=== PATIENT | male | born 1960 | race Caucasian/White ===

== ENCOUNTER → 2022-10-02 13:10 | Outpatient (BNVA) | payer MEDICAID, SELFPAY | PROVIDERS: PCP Nurse Practitioner Family; Visit Provider Nurse Practitioner Family | DX: Z86.19 Personal history of other infectious and parasitic diseases (principal); E78.5 Hyperlipidemia, unspecified; G89.29 Other chronic pain; N18.9 Chronic kidney disease, unspecified; Z12.5 Encounter for screening for malignant neoplasm of prostate; Z85.828 Personal history of other malignant neoplasm of skin | CPT/HCPCS: 80053; 80061; 82043; 82306; G0103 ==

== ENCOUNTER 2022-11-08 12:48 | Outpatient (CLI) | payer MEDICAID, SELFPAY ==
--- NOTE | 2022-11-08 12:45 | CT_ITS ---
WS: [id number] LDCT LUNG CANCER SCREENING HISTORY: screening TECHNIQUE: Axial imaging performed from the apices to 1 cm below the costophrenic angles. Coronal and sagittal reformats are submitted with axial MIP series. All CT scans at [facility] use at least one of these dose optimization techniques: automated exposure control; mA and/or kV adjustment per patient size (includes targeted exams where dose is matched to clinical indication); or iterativ e reconstruction. DLP: 54.01 mGy.cm DIvol: Mean CTDIvol: 0.90 (mGy) COMPARISON: None available. Diagnostic quality: Satisfactory Lungs: Mildly hyperexpanded lungs. No mass or nodule. No endobronchial lesions. Heart: Normal size heart with no pericardial effusion.. Mild coronary artery calcification. Other findings: Small mediastinal and hilar lymph nodes. Mild atherosclerosis aorta. CT/CT lung screening [id number] IMPRESSION: LUNG-RADS: 1-Negative FOLLOW UP: 12 Month: Continue annual screening with LDCT OTHER FINDINGS (S MODIFIER): None.
== END 2022-11-08 12:49 | disposition home or self-care (01) ==
LOC: RAD 12:50
PROVIDERS: PCP Nurse Practitioner Family; Visit Provider Nurse Practitioner Family
DX: Z12.2 Encounter for screening for malignant neoplasm of respiratory organs (principal); F17.200 Nicotine dependence, unspecified, uncomplicated
CPT/HCPCS: 71271; 80053; 80061; 82043; 82306; G0103

== ENCOUNTER → 2023-01-03 11:55 | Outpatient (BNVA) | payer MEDICARE, MEDICAID, SELFPAY | PROVIDERS: PCP Nurse Practitioner Family; Visit Provider Nurse Practitioner Family | DX: E78.5 Hyperlipidemia, unspecified (principal); G89.29 Other chronic pain; M54.9 Dorsalgia, unspecified; E55.9 Vitamin D deficiency, unspecified; N18.9 Chronic kidney disease, unspecified; M54.10 Radiculopathy, site unspecified; G62.9 Polyneuropathy, unspecified; N32.81 Overactive bladder; K21.9 Gastro-esophageal reflux disease without esophagitis; N40.0 Benign prostatic hyperplasia without lower urinary tract symptoms; G47.00 Insomnia, unspecified; Z12.2 Encounter for screening for malignant neoplasm of respiratory organs; Z90.5 Acquired absence of kidney | CPT/HCPCS: 80053; 80061 ==

== ENCOUNTER → 2023-03-29 12:03 | Outpatient (BNVA) | payer MEDICARE, MEDICAID, SELFPAY | PROVIDERS: PCP Nurse Practitioner Family; Visit Provider Nurse Practitioner Family | DX: M54.10 Radiculopathy, site unspecified (principal); G89.29 Other chronic pain; F41.9 Anxiety disorder, unspecified; J06.9 Acute upper respiratory infection, unspecified; R53.1 Weakness | CPT/HCPCS: 87486; 87581; 87633 ==

== ENCOUNTER → 2023-05-01 12:02 | Outpatient (BNVA) | payer MEDICARE, MEDICAID, SELFPAY | PROVIDERS: PCP Nurse Practitioner Family; Visit Provider Nurse Practitioner Family | DX: M54.10 Radiculopathy, site unspecified (principal); G89.29 Other chronic pain; J32.9 Chronic sinusitis, unspecified; E78.2 Mixed hyperlipidemia; K21.9 Gastro-esophageal reflux disease without esophagitis; G62.9 Polyneuropathy, unspecified; E55.9 Vitamin D deficiency, unspecified; G47.00 Insomnia, unspecified; Z13.6 Encounter for screening for cardiovascular disorders; N18.9 Chronic kidney disease, unspecified; Z79.899 Other long term (current) drug therapy | CPT/HCPCS: 80053; 80061; 82607; 82746; 84443 ==

== ENCOUNTER 2023-07-03 15:00 | Outpatient (CLI) | payer MEDICARE, MEDICAID, SELFPAY ==
--- NOTE | 2023-07-03 15:15 | MR_ITS ---
WS: [id number] MRI LUMBAR SPINE NONCONTRAST TECHNIQUE: Sagittal T1, T2 and STIR imaging. Axial T1 and T2 imaging. CLINICAL INFORMATION: LBP with sciatica COMPARISON: None. FINDINGS: Counting performed from the craniocervical junction. L5 is partially sacralized with a rudimentary di sc base. Recommend plain film correlation prior to surgical intervention. T12-L1: Shallow central disc protrusion. Mild central canal stenosis. Narrowing of the subarticular r ecess bilaterally. Mild facet arthropathy. Foramen are patent. L1-L2: Mild disc bulging with mild central canal stenosis. Narrowing of the subarticular recess bilat erally. Mild facet arthropathy. L2-L3: Shallow central protrusion. Mild central canal stenosis. Narrowing of the LEFT subarticular re cess. Moderate facet arthropathy. Foramen are patent. L3-L4: Mild disc bulging with slight narrowing the subarticular recess bilaterally. Moderate facet ar thropathy. Foramen are patent. L4-L5: Mild disc bulge with endplate ridging. Slight impingement traversing L5 nerve roots bilaterall y. Moderate facet arthropathy. Mild RIGHT foraminal narrowing. L5-S1: L5 is partially sacralized with a rudimentary disc space. Spinal canal and foramen appear barbour nt. Visualized pelvic bony structures: Normal. Paravertebral soft tissues: Normal. Small central protrusions in the cervical spine with mild central canal stenosis C3-C4 C5-C6 and C6-C 7. This be further evaluated with cervical spine MRI. IMPRESSION: 1. Counting performed from the craniocervical junction. L5 is partially sacralized with a rudimenta ry disc base. 2. Mild central canal stenosis with small central protrusions at T12-L1, L1-2, and L2-3. 3. Narrowing of the subarticular recess bilaterally L3-L4 and L4-L5. 4. Mild RIGHT L4-5 foraminal narrowing. 5. Small disc protrusions in the cervical spine with central canal stenosis. Recommend cervical spin e MRI in further evaluation.
== END 2023-07-03 15:01 | disposition home or self-care (01) ==
LOC: RAD 15:01
PROVIDERS: PCP Nurse Practitioner Family; Visit Provider Nurse Practitioner Family
DX: M54.16 Radiculopathy, lumbar region (principal); G62.9 Polyneuropathy, unspecified; G89.29 Other chronic pain; M48.05 Spinal stenosis, thoracolumbar region; M50.20 Other cervical disc displacement, unspecified cervical region; M51.25 Other intervertebral disc displacement, thoracolumbar region
CPT/HCPCS: 72148

== ENCOUNTER 2023-08-13 15:20 | Outpatient (CLI) | payer MEDICARE, MEDICAID, SELFPAY ==
--- NOTE | 2023-08-13 15:15 | MR_ITS ---
WS: [id number] MRI CERVICAL SPINE NONCONTRAST HISTORY: ABN MRI L Spine, neck pain COMPARISON: None available. Technique: Multiplanar, multisequence noncontrast imaging of the cervical spine. Normal cervical alignment. Advanced degenerative disc disease and disc osteophyte complex at multiple levels. No fracture or marrow edema. Signal within the cervical cord is normal. Visualized posterior fossa is unremarkable. Craniocervical junction, C1 and C2 relationship, odontoid process and soft tissues are normal. C2-C3: Mild diffuse disc osteophyte disease. Mild encroachment upon the ventral thecal sac. Mild to m oderate RIGHT foraminal stenosis and facet arthritis. C3-C4: Disc osteophyte disease with a central disc protrusion. Marked facet joint arthritis. Small am ount of edema within the facet joints. Mild central with moderate bilateral foraminal stenosis. C4-C5: Osteophytic ridging and mild disc bulging. Moderate facet arthritis. Very mild RIGHT foraminal narrowing. C5-C6: Marked osteophytic ridging and diffuse disc bulging with a central and foraminal disc protrusi ons. Moderate central and severe bilateral foraminal stenosis with marked facet arthritis. C6-C7: Osteophytic ridging with diffuse annular disc bulging and marked facet arthritis. Moderate beth tral with severe foraminal stenosis. C7-T1: Mild facet arthritis. No high-grade stenosis. Tiny central disc protrusion. Paraspinal soft tissue are normal. MR/MR cervical spin wo con* [id number] IMPRESSION: 1. Multilevel areas of significant central and foraminal stenosis with marked facet joint arthritis at multiple levels. Stenoses due to combination of disc a nd osteophyte and facet arthritis. 2. C2-3: Mild to moderate RIGHT foraminal stenosis. 3. C3-4: Mild central with moderate bilateral foraminal stenosis. 4. C5-6: Moderate central with severe bilateral foraminal stenosis with marked facet arthritis. Central and bilateral foraminal disc protrusions contributing to the stenosis. 5. C6-7: Moderate central with severe bilateral foraminal stenosis. 6. Very tiny central disc protrusion at C7-T1.
== END 2023-08-13 15:21 | disposition home or self-care (01) ==
LOC: RAD 15:20
PROVIDERS: PCP Nurse Practitioner Family; Visit Provider Nurse Practitioner Family
DX: M54.2 Cervicalgia (principal); R93.7 Abnormal findings on diagnostic imaging of other parts of musculoskeletal system; M48.02 Spinal stenosis, cervical region
CPT/HCPCS: 72141

== ENCOUNTER → 2023-08-27 13:14 | Outpatient (BNVA) | payer MEDICARE, MEDICAID, SELFPAY | PROVIDERS: PCP Nurse Practitioner Family; Referring Provider Nurse Practitioner Family; Visit Provider Orthopaedic Surgery | DX: M54.2 Cervicalgia (principal) | CPT/HCPCS: 72050; 99204 ==

== ENCOUNTER 2023-09-15 12:40 | Observation (INO) | payer MEDICARE, MEDICAID, SELFPAY ==
[2023-09-15 12:42] VITALS: BP 152/15; PULSE 91; RESP 16; TEMP 36.7; O2SAT 96; BMI 24.3
--- NOTE | 2023-09-15 12:42 | XRR_ITS ---
PROCEDURE INFORMATION: Exam: XR Chest Exam date and time: 09/15/2023 1:07 PM Age: 63 years old Clinical indication: Cough and dyspnea; Additional info: Dyspnea/cough TECHNIQUE: Imaging protocol: Radiologic exam of the chest. Views: 1 view. COMPARISON: CT lung screening [id number] 11/08/2022 12:59 PM FINDINGS: Lungs: Unremarkable. No consolidation. Pleural spaces: Unremarkable. No pleural effusion. No pneumothorax. Heart/Mediastinum: Unremarkable. No cardiomegaly. Bones/joints: Unremarkable. XR/XR chest 1V portable [id number] IMPRESSION: No acute findings.
--- NOTE | 2023-09-15 12:43 | ECG_ITS ---
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 Measurements Intervals [place] Rate: 97 P: 40 SC: 139 QRS: 31 QRSD: 81 T: 87 QT: 366 QTc: 465 Interpretive Statements SINUS RHYTHM NONSPECIFIC ST & T-WAVE ABNORMALITY No previous ECG available for comparison Electronically Signed On 09-15-2023 17:36:57 CDT by Ankush Kearns M.D. [email or web address]/[id number] f
--- NOTE | 2023-09-15 12:43 | CTR_ITS ---
PROCEDURE INFORMATION: Exam: CT Head Without Contrast Exam date and time: 09/15/2023 1:02 PM Age: 63 years old Clinical indication: Altered mental status/memory loss; Patient HX: Scanned twice/ PT moving; Additional info: AMS TECHNIQUE: Imaging protocol: Computed tomography of the head without contrast. Radiation optimization: All CT scans at this facility use at least one of these dose optimization techniques: automated exposure control; mA and/or kV adjustment per patient size (includes targeted exams where dose is matched to clinical indication); or iterative reconstruction. COMPARISON: No previous head CT or MR available. RADIATION DOSE METRICS: Total DLP (mGy-cm): 2223.74 FINDINGS: Brain: No midline shift. Within the brain parenchyma no acute intra-axial hemorrhage or mass effect is demonstrated. No extra-axial fluid collection demonstrated. Decreased attenuation in the cerebral white matter consistent with age-related findings of chronic small-vessel disease. Cerebral volume loss somewhat more prominent in the left frontal lobe. Cerebral ventricles: The ventricular system is open and the cerebral sulci are not effaced. Paranasal sinuses: Visualized paranasal sinuses are clear. Mastoid air cells: Visualized mastoid air cells are clear. Bones: No acute osseous abnormality identified. Soft tissues: No acute abnormality identified. Notes: Please note CT does not detect all acute ischemic abnormalities; if indicated, consider MRI with diffusion, or follow-up Head CT CT/CT head wo con* [id number] IMPRESSION: No acute intracranial hemorrhage or mass effect identified. Age consistent findings of sequelae of chronic small-vessel disease.
--- NOTE | 2023-09-15 12:58 | W.ED.AMS ---
HPI - Altered Mental Status General: Chief Complaint: Altered Mental Status Stated Complaint: AMS Time Seen by Provider: 09/15/23 12:41 History of Present Illness: 63-year-old male presents emergency room via EMS poorly responsive. His eyes are fixed. He is on Suboxone he is feeling thousand also has oral tablets in his medicine box. CT of his abdomen is negative. Patient is poorly responsive he will mumble a few answers. He knows where he is at but does not know why he is here he does not recall any of his medications I can get him to tell me he does not have any chest or abdominal pain. [facility] ED PFSH: Medical History Enrolled in chronic care management Current smoker Insomnia Chronic pain DDD (degenerative disc disease) H/O malignant neoplasm of skin Hyperlipidemia Surgical History H/O kidney removal (2017) Hx of hemorrhoidectomy H/O lumbosacral spine surgery Family History Other Cancer Social History Smoking and tobacco/nicotine status: current every day tobacco/nicotine user Quit status (tobacco/nicotine): not considering quitting Marital status: Course Vital Signs: Vital signs: Vital Signs Temperature 98.0 F 09/15/23 12:42 Pulse Rate 105 H 09/15/23 14:03 Respiratory Rate 16 09/15/23 12:42 Blood Pressure 155/91 09/15/23 14:03 Pulse Oximetry 93 09/15/23 14:03 Oxygen Delivery Me thod Room Air 09/15/23 14:03 MDM - Altered Mental Status Medical Decision Making Toxicology screening is negative. He had no response to Narcan. He has no focal neurologic deficits labs are otherwise normal pupils still fixed. CT pelvis does not show any acute pathology. Discussed with hospitalist will admit for observation for encephalopathy. Medical Records I reviewed the patient's medical records. Lab Data I reviewed the patient's lab results. 09/15/23 12:50 09/15/23 12:[address] 09/15/23 12:43 IMPRESSION: No acute intracranial hemorrhage or mass effect identified. Age consistent findings of sequelae of chronic small-vessel disease. Abdomen/Pelvis CT 09/15/23 14:59 IMPRESSION: 1. Diverticulosis without secondary evidence of acute diverticulitis. 2. Status post left nephrectomy. 3. No hydronephrosis of the right kidney or ureteral calculus demonstrated. Moderately distended urinary bladder. 4. Fatty replacement of the pancreas particularly the pancreatic head. COMMENTS: Please note that lack of IV contrast limits both the sensitivity, and the specificity, of the examination, particularly as regards focal lesions in the solid organs. Laboratory Results WBC 10.02 10^3/uL (3.29-11.43) 09/15/23 12:50 RBC 4.26 10^6/uL (3.85-5.65) 09/15/23 12:50 Hgb 13.80 g/dL (11.27-16.99) 09/15/23 12:50 Hct 42.0 % (37-53) 09/15/23 12:50 MCV 98.6 fl (82-101) 09/15/23 12:50 MCH 32.4 pg (27-33) 09/15/23 12:50 MCHC 32.9 g/dL (30-55) 09/15/23 12:50 RDW 13.2 % (12.1-15.1) 09/15/23 12:50 Plt Count 223 10^3/cmm (157-399) 09/15/23 12:50 MPV 9.8 fL (7.4-10.4) 09/15/23 12:50 Neut % (Auto) 83.5 % 09/15/23 12:50 Lymph % (Auto) 11.8 % 09/15/23 12:50 Howard % (Auto) 4.0 % 09/15/23 12:50 Eos % (Auto) 0.3 % 09/15/23 12:50 Baso % (Auto) 0.3 % 09/15/23 12:50 Neut # (Auto) 8.37 10^3/uL (1.8-7.7) H 09/15/23 12:50 Lymph # (Auto) 1.2 10^3/uL (0.8-4.8) 09/15/23 12:50 Howard # (Auto) 0.4 10^3/uL (0.2-0.9) 09/15/23 12:50 Eos # (Auto) 0.0 10^3/uL (0.0-0.8) 09/15/23 12:50 Baso # (Auto) 0.0 10^3/uL (0.0-0.1) 09/15/23 12:50 Nucleated RBC % (auto) 0 % 09/15/23 12:50 Nucleated RBCs # 0.0 /100WBC 09/15/23 12:50 Sodium 139 mmol/L (136-145) 09/15/23 12:50 Potassium 3.9 mmol/L (3.5-5.1) 09/15/23 12:50 Chloride 103 mmol/L (98-107) 09/15/23 12:50 Carbon Dioxide 23 mmol/L (22-29) 09/15/23 12:50 Anion Gap 16.9 (5-19) 09/15/23 12:50 BUN 12 mg/dL (8-23) 09/15/23 12:50 Creatinine 1.1 mg/dL (0.7-1.2) 09/15/23 12:50 GFR Calculation 67.2 mL/min (90-130) L 09/15/23 12:50 Glucose 111 mg/dL (65-115) 09/15/23 12:50 Calculated Osmolality 288 mOsm/kg (285-295) 09/15/23 12:50 Calcium 9.5 mg/dL (8.5-10.5) 09/15/23 12:50 Total Bilirubin 0.4 mg/dL (0.15-1.2) 09/15/23 12:50 AST 15 U/L (0-40) 09/15/23 12:50 ALT 8 U/L (0-41) 09/15/23 12:50 Alkaline Phosphatase 109 U/L (40-130) 09/15/23 12:50 Troponin T Baseline 10 ng/L (0-15) 09/15/23 12:50 Troponin T 120 Minute 9.61 ng/L (0-15) 09/15/23 15:00 Delta Troponin T -0.39 ABS# (0-10) L 09/15/23 15:00 Total Protein 7.4 g/dL (6.6-8.7) 09/15/23 12:50 Albumin 4.3 g/dL (3.5-5.2) 09/15/23 12:50 Globulin 3.1 g/dL (1.3-4.6) 09/15/23 12:50 Urine Color Yellow (Yellow) 09/15/23 01:25 Urine Appearance Clear (CLEAR) 09/15/23 01:25 Urine pH 5 (5-7) 09/15/23 01:25 Ur Specific [place] 1.015 (1.005-1.030) 09/15/23 01:25 Urine Protein Neg (Negative) 09/15/23 01:25 Urine Glucose (UA) Norm (Normal) 09/15/23 01:25 Urine Ketones 1+ (Negative) H 09/15/23 01:25 Urine Blood 2+ (Negative) H 09/15/23 01:25 Urine Nitrate Negative (Negative) 09/15/23 01:25 Urine Bilirubin Neg (Negative) 09/15/23 01:25 Urine Urobilinogen Norm mg/dL (Negative) 09/15/23 01:25 Ur Leukocyte Esterase 1+ (Negative) H 09/15/23 01:25 Urine RBC 0-4 /hpf (0-2) H 09/15/23 01:25 Urine WBC 5-10 /hpf (0-5) H 09/15/23 01:25 Ur Squamous Epith Cells Rare /hpf (0-5) 09/15/23 01:25 Amorphous Sediment Not Reportable 09/15/23 01:25 Urine Bacteria 1+ /hpf (NONE) H 09/15/23 01:25 Salicylates < 0.3 mg/dL (3-10) L 09/15/23 12:50 Urine Opiates Screen Positive ng/mL (Negative) H 09/15/23 01:25 Acetaminophen < 5.0 ug/mL (10-30) L 09/15/23 12:50 Ur Barbiturates Screen Negative ng/mL (Negative) 09/15/23 01:25 Ur Phencyclidine Scrn Negative ng/mL (Negative) 09/15/23 01:25 Ur Amphetamines Screen Negative ng/mL (Negative) 09/15/23 01:25 U Benzodiazepines Scrn Negative ng/mL (Negative) 09/15/23 01:25 Urine Cocaine Screen Negative ng/mL (Negative) 09/15/23 01:25 U Marijuana (THC) Screen Positive ng/mL (Negative) H 09/15/23 01:25 Ethyl Alcohol < 10 mg/dL (0-10) 09/15/23 12:50 All radiology interpretation(s) finalized by discharge Discharge Plan Discharge Condition: Stable Prescriptions: No Action atorvastatin 40 mg tablet 40 mg PO .pm 90 Days Qty: 90 1RF cyclobenzaprine 10 mg tablet 10 mg PO TID 90 Days Qty: 270 1RF duloxetine 60 mg capsule,delayed release(DR/EC) 60 mg PO DAILY 90 Days Qty: 90 1RF gabapentin 600 mg tablet 600 mg PO TID 90 Days Qty: 270 1RF pantoprazole [Protonix] 40 mg tablet,delayed release (DR/EC) 40 mg PO DAILY 90 Days Qty: 90 1RF tamsulosin [Flomax] 0.4 mg capsule 0.4 mg PO DAILY 90 Days Qty: 90 1RF trazodone 150 mg tablet 150 mg PO .hs 90 Days Qty: 90 1RF acetaminophen-codeine 300-60 mg tablet 1 tab PO TID PRN (Reason: pain) 30 Days Qty: 90 0RF finasteride 5 mg tablet 5 mg PO DAILY cholecalciferol (vitamin D3) 25 mcg (1,000 unit) capsule See Rx Instructions .ROUTE .COMPLEX Qty: 90 1RF Dose Instruction: TAKE THREE CAPSULES BY MOUTH DAILY Rx Instructions: TAKE THREE CAPSULES BY MOUTH DAILY Referrals: Heaven Chong NP [Primary Care Provider] - Patient Instructions: Altered Mental Status (ED) Coding Level of Care Code ED Grocery Specialist for Meseret Herrera
[2023-09-15 13:08] LABS: Basophils % 0.3 %; Eosinophils % 0.3 %; Lymphocytes # 1.2 10^3/uL (0.8-4.8); Lymphocytes % 11.8 %; Mean Corpuscular HGB Conc 32.9 g/dL (30-55); Mean Corpuscular Hemoglobin 32.4 pg (27-33); Mean Corpuscular Volume 98.6 fl (82-101); Mean Platelet Volume 9.8 fL (7.4-10.4); Monocytes # 0.4 10^3/uL (0.2-0.9); Neutrophils # 8.37 10^3/uL (1.8-7.7); Neutrophils % 83.5 %; Nucleated Red Blood Cells % 0 %; Platelet Count 223 10^3/cmm (157-399); Red Blood Count 4.26 10^6/uL (3.85-5.65); Red Cell Distribution Width 13.2 % (12.1-15.1); White Blood Count 10.02 10^3/uL (3.29-11.43)
[2023-09-15] MEDS: ondansetron 2 mg/ML SDV 2 mL 4 MG IVP (13:17)
[2023-09-15] MEDS: naloxone 0.4 mg/ml SDV 0.400000000000000022 MG IVP (13:18)
[2023-09-15 13:29] LABS: Alanine Aminotransferase 8 U/L (0-41); Albumin Level 4.3 g/dL (3.5-5.2); Alkaline Phosphatase 109 U/L (40-130); Anion Gap 16.9 (5-19); Aspartate Amino Transferase 15 U/L (0-40); Blood Urea Nitrogen 12 mg/dL (8-23); Calcium 9.5 mg/dL (8.5-10.5); Carbon Dioxide 23 mmol/L (22-29); Chloride 103 mmol/L (98-107); Globulin 3.1 g/dL (1.3-4.6); Glomerular Filtration Rate 67.2 mL/min (90-130); Glucose 111 mg/dL (65-115); Osmolality Calculated 288 mOsm/kg (285-295); Potassium 3.9 mmol/L (3.5-5.1); Sodium 139 mmol/L (136-145); Total Bilirubin 0.4 mg/dL (0.15-1.2); Total Protein 7.4 g/dL (6.6-8.7)
[2023-09-15 13:30] LABS: Troponin(5th) Baseline 10 ng/L (0-15)
[2023-09-15 13:50] LABS: Specific Gravity, Urine 1.015 (1.005-1.030); Urine Appearance Clear (CLEAR); Urine Color Yellow (Yellow); pH Urine 5 (5-7)
[2023-09-15 13:51] LABS: Add Urine Culture? Yes; Add Urine Microscopic? YES; Bacteria Urine 1+ /hpf; Bilirubin Urine Neg (Negative); Blood Urine 2+ (Negative); Glucose Urine UA Norm (Normal); Ketones Urine 1+ (Negative); Leukocyte Esterase Urine 1+ (Negative); Nitrate Urine Negative (Negative); Protein Urine Neg (Negative); RBC Urine 0-4 /hpf (0-2); Squamous Epithelial Cell Urine RARE /hpf (0-5); Urobilinogen Urine Norm (Negative)
[2023-09-15 14:03] VITALS: BP 155/91; PULSE 105; O2SAT 93
--- NOTE | 2023-09-15 14:43 | ECG_ITS ---
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 Measurements Intervals [place] Rate: 105 P: 45 KS: 157 QRS: 20 QRSD: 80 T: 87 QT: 351 QTc: 464 Interpretive Statements SINUS TACHYCARDIA POSSIBLE LEFT ATRIAL ENLARGEMENT [-0.1mV P-WAVE IN V1/V2] NONSPECIFIC ST & T-WAVE ABNORMALITY ABNORMAL RHYTHM ECG Compared to ECG 09/15/2023 12:47:56 Sinus rhythm no longer present T-wave abnormality still present Electronically Signed On 09-15-2023 17:38:21 CDT by Ankush Kearns M.D. [id number]
[2023-09-15] MEDS: sodium chloride 0.9% 1,000 ML 999 ML IV (14:52)
--- NOTE | 2023-09-15 14:59 | CTR_ITS ---
PROCEDURE INFORMATION: Exam: CT Abdomen And Pelvis Without Contrast Exam date and time: 09/15/2023 3:19 PM Age: 63 years old Clinical indication: Abdominal pain; Generalized TECHNIQUE: Imaging protocol: Computed tomography of the abdomen and pelvis without contrast. Radiation optimization: All CT scans at this facility use at least one of these dose optimization techniques: automated exposure control; mA and/or kV adjustment per patient size (includes targeted exams where dose is matched to clinical indication); or iterative reconstruction. COMPARISON: Limited comparison chest CT 11/08/2022 RADIATION DOSE METRICS: Total DLP (mGy-cm): 571.72 FINDINGS: Lungs: Imaged portions of the lung bases demonstrate minimal scarring and/or atelectasis. Liver: Unremarkable. Gallbladder and bile ducts: Gallbladder is unremarkable. No extrahepatic biliary ductal dilatation for age. Pancreas: Fatty replacement of the pancreas most prominent in the pancreatic head similar to previous. No pancreatic ductal dilatation identified. Spleen: Unremarkable. Adrenal glands: Not enlarged. Kidneys and ureters: The patient is status post left nephrectomy. There is a prominent right renal pelvis but without evidence of significant calyceal dilatation. No right perinephric edema identified. No ureteral dilatation or ureteral calculus is observed. Stomach and bowel: No bowel obstruction identified. No bowel wall thickening noted, within the limits of the examination. Diverticulosis without secondary evidence of acute diverticulitis. Appendix: No acute inflammatory change of the appendix is identified although it does contain faintly radiodense material. Intraperitoneal space: No significant volume of free fluid identified. Vasculature: Atherosclerosis present major vasculature without abdominal aortic aneurysm noted. Lymph nodes: No adenopathy noted. Urinary bladder: Urinary bladder is unremarkable as visualized and prominently distended up to the L5 level measuring approximately 13 cm craniocaudal. Reproductive: Prostate is not significantly enlarged. Bones/joints: Previous lower lumbar laminectomy. Scattered degenerative changes noted at multiple thoracolumbar levels. Soft tissues: Small fat containing umbilical hernia. CT/CT abdomen pelvis wo con [id number] IMPRESSION: 1. Diverticulosis without secondary evidence of acute diverticulitis. 2. Status post left nephrectomy. 3. No hydronephrosis of the right kidney or ureteral calculus demonstrated. Moderately distended urinary bladder. 4. Fatty replacement of the pancreas particularly the pancreatic head. COMMENTS: Please note that lack of IV contrast limits both the sensitivity, and the specificity, of the examination, particularly as regards focal lesions in the solid organs.
[2023-09-15 15:25] LABS: Troponin 5 2HR 9.61 ng/L (0-15); Troponin 5 2HR Delta -0.39 ABS# (0-10)
[2023-09-15 15:28] LABS: Acetaminophen < 5.0 ug/mL (10-30); Alcohol Level < 10 mg/dL (0-10); Salicylate < 0.3 mg/dL (3-10)
[2023-09-15 15:35] LABS: Amphetamines Screen Urine Negative (Negative); Barbiturates Screen Urine Negative (Negative); Benzodiazepines Screen Urine Negative (Negative); Cocaine Screen Urine Negative (Negative); Opiate Screen Urine Positive (Negative); PCP Screen Urine Negative (Negative); THC Screen Urine Positive (Negative)
[2023-09-15 16:06] VITALS: BP 153/83; PULSE 110; O2SAT 94
--- NOTE | 2023-09-15 18:15 | ECG_ITS ---
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 Measurements Intervals [place] Rate: 112 P: 35 CT: 132 QRS: 9 QRSD: 89 T: 28 QT: 328 QTc: 450 Interpretive Statements SINUS TACHYCARDIA POSSIBLE LEFT ATRIAL ENLARGEMENT [-0.1mV P-WAVE IN V1/V2] NONSPECIFIC ST & T-WAVE ABNORMALITY ABNORMAL RHYTHM ECG Compared to ECG 09/15/2023 14:35:54 No significant changes Electronically Signed On 09-16-2023 14:32:25 CDT by Ankush Kearns M.D. [email or web address]otechTaxiPixisumma health [email or web address] - [email or web address] medical [id number]
--- NOTE | 2023-09-15 19:02 | P.HP_ITS ---
Providers/Chief Complaint 2 Admitting Physician: Juliette Klein MD Primary Care Provider: Heaven Chong NP Chief Complaint: AMS History of Present Illness Reagan Bray is a 63 year old male with PMH HTN, insomnia BPH overactive bladder neuropathy reflux chronic back pain degenerative disc disease hyperlipidemia history of hepatitis C history of left nephrectomy , per discussion with ERP, also currently on suboxone for chronic pain. History is obtained by chart reveiw and discussion with ERP as patient unable to participate. Phone no. for his listed contact is not reachable. He was brought to the ER today due to poor responsiveness. HIs pupils were dilated at time of exam. CT head negative. There was no significant response to narcan in the ED. At the matt eof this exam, patient is able to be easily awakened. He is moving all extremities, follows commands to move extremities , move from gurney to bed etc, opens eyes to calling his name, nods yes or no to simple questions like are you aleksandr? , however does not say more then 2-3 words or participate in conversation. no known h/o seizures per chart review . He was found to have suboxone pills in his pocket in the er. Denies any pain when asked, however winces to superficial touch everywhere including abdomen, chest, legs, arms, etc Review of Systems 2 General: Reports: ROS unobtainable due to mental status Medications/Allergies Home Medications Medication Instructions Recorded Confirmed Last Taken Type atorvastatin 40 mg tablet 40 mg PO .pm 90 days #90 tabs 06/28/23 09/02/23 Unknown Rx cyclobenzaprine 10 mg tablet 10 mg PO TID 90 days #270 tabs 06/28/23 09/02/23 Unknown Rx duloxetine 60 mg capsule,delayed 60 mg PO DAILY 90 days #90 caps 06/28/23 09/02/23 Unknown Rx release gabapentin 600 mg tablet 600 mg PO TID 90 days #270 tabs 06/28/23 09/02/23 Unknown Rx pantoprazole 40 mg tablet,delayed 40 mg PO DAILY 90 days #90 tabs 06/28/23 09/02/23 Unknown Rx release (Protonix) tamsulosin 0.4 mg capsule (Flomax) 0.4 mg PO DAILY 90 days #90 caps 06/28/23 09/02/23 Unknown Rx trazodone 150 mg tablet 150 mg PO .hs 90 days #90 tabs 06/28/23 09/02/23 Unknown Rx cholecalciferol (vitamin D3) 25 See Rx Instructions .Route 08/16/23 09/02/23 Unknown Rx mcg (1,000 unit) capsule .COMPLEX #90 ea acetaminophen 300 mg-codeine 60 mg 1 tab PO TID PRN pain 30 days #90 08/26/23 09/02/23 Unknown Rx tablet tabs finasteride 5 mg tablet 5 mg PO DAILY 09/02/23 09/02/23 Unknown History Allergies Allergy/AdvReac Type Severity Reaction Status Date / Time Penicillins Allergy Unknown Verified 09/02/23 15:55 PFSH Acute 2 PFSH: Medical History Enrolled in chronic care management Current smoker Insomnia Chronic pain DDD (degenerative disc disease) H/O malignant neoplasm of skin Hyperlipidemia Surgical History H/O kidney removal (2016) Hx of hemorrhoidectomy H/O lumbosacral spine surgery Family History Other Cancer Social History Smoking and tobacco/nicotine status: current every day tobacco/nicotine user Quit status (tobacco/nicotine): not considering quitting Marital status: Vitals/I&O/Wt Last Vital Signs Temp 98.0 F 09/15/23 12:42 Pulse 110 H 09/15/23 16:06 Resp 16 09/15/23 12:42 BP 153/83 09/15/23 16:06 Pulse Ox 94 09/15/23 16:06 O2 Del Method Room Air 09/15/23 16:06 09/15/23 09/15/23 09/15/23 06:59 14:59 22:59 Intake Total 1000 / 1000 Balance 1000 / 1000 Weight last 48 hrs Weight 77.111 kg Physical Exam 2 Narrative: General: prefers to sleep, wakes up easily to calling name , follows simple commands to move arms and legs, turn sides in beds, assist with bed transfers etc HEENT: PERRLA, pupils bilaterally equal and reactive, pallors not present Chest: Normal vesicular breath sounds, no added sounds, equal good air entry bilaterally CVS: S1-S2 regular, no murmurs, no tachycardia, no gallops, no rubs Abdomen: Soft, nontender, no organomegaly, bowel sounds present Neuro: No focal neuro deficits, confused Data 09/15/23 12:50 09/15/23 12:50 Micro: Microbiology 09/15/23 12:59 Blood Culture - Preliminary Blood SPECIMEN COLLECTED 09/15/23 12:50 Blood Culture - Preliminary Blood SPECIMEN COLLECTED Other data: Radiology Impressions Chest X-Ray 09/15/23 12:42 IMPRESSION: No acute findings. Head CT 09/15/23 12:43 IMPRESSION: No acute intracranial hemorrhage or mass effect identified. Age consistent findings of sequelae of chronic small-vessel disease. Abdomen/Pelvis CT 09/15/23 14:59 IMPRESSION: 1. Diverticulosis without secondary evidence of acute diverticulitis. 2. Status post left nephrectomy. 3. No hydronephrosis of the right kidney or ureteral calculus demonstrated. Moderately distended urinary bladder. 4. Fatty replacement of the pancreas particularly the pancreatic head. COMMENTS: Please note that lack of IV contrast limits both the sensitivity, and the specificity, of the examination, particularly as regards focal lesions in the solid organs. Laboratory Results WBC 10.02 10^3/uL (3.29-11.43) 09/15/23 12:50 RBC 4.26 10^6/uL (3.85-5.65) 09/15/23 12:50 Hgb 13.80 g/dL (11.27-16.99) 09/15/23 12:50 Hct 42.0 % (37-53) 09/15/23 12:50 MCV 98.6 fl (82-101) 09/15/23 12:50 MCH 32.4 pg (27-33) 09/15/23 12:50 MCHC 32.9 g/dL (30-55) 09/15/23 12:50 RDW 13.2 % (12.1-15.1) 09/15/23 12:50 Plt Count 223 10^3/cmm (157-399) 09/15/23 12:50 MPV 9.8 fL (7.4-10.4) 09/15/23 12:50 Neut % (Auto) 83.5 % 09/15/23 12:50 Lymph % (Auto) 11.8 % 09/15/23 12:50 Bryan % (Auto) 4.0 % 09/15/23 12:50 Eos % (Auto) 0.3 % 09/15/23 12:50 Baso % (Auto) 0.3 % 09/15/23 12:50 Neut # (Auto) 8.37 10^3/uL (1.8-7.7) H 09/15/23 12:50 Lymph # (Auto) 1.2 10^3/uL (0.8-4.8) 09/15/23 12:50 Bryan # (Auto) 0.4 10^3/uL (0.2-0.9) 09/15/23 12:50 Eos # (Auto) 0.0 10^3/uL (0.0-0.8) 09/15/23 12:50 Baso # (Auto) 0.0 10^3/uL (0.0-0.1) 09/15/23 12:50 Nucleated RBC % (auto) 0 % 09/15/23 12:50 Nucleated RBCs # 0.0 /100WBC 09/15/23 12:50 Sodium 139 mmol/L (136-145) 09/15/23 12:50 Potassium 3.9 mmol/L (3.5-5.1) 09/15/23 12:50 Chloride 103 mmol/L (98-107) 09/15/23 12:50 Carbon Dioxide 23 mmol/L (22-29) 09/15/23 12:50 Anion Gap 16.9 (5-19) 09/15/23 12:50 BUN 12 mg/dL (8-23) 09/15/23 12:50 Creatinine 1.1 mg/dL (0.7-1.2) 09/15/23 12:50 GFR Calculation 67.2 mL/min (90-130) L 09/15/23 12:50 Glucose 111 mg/dL (65-115) 09/15/23 12:50 Calculated Osmolality 288 mOsm/kg (285-295) 09/15/23 12:50 Calcium 9.5 mg/dL (8.5-10.5) 09/15/23 12:50 Total Bilirubin 0.4 mg/dL (0.15-1.2) 09/15/23 12:50 AST 15 U/L (0-40) 09/15/23 12:50 ALT 8 U/L (0-41) 09/15/23 12:50 Alkaline Phosphatase 109 U/L (40-130) 09/15/23 12:50 Troponin T Baseline 10 ng/L (0-15) 09/15/23 12:50 Troponin T 120 Minute 9.61 ng/L (0-15) 09/15/23 15:00 Delta Troponin T -0.39 ABS# (0-10) L 09/15/23 15:00 Troponin T Hi Sens 6Hr 10.42 ng/L (0-15) 09/15/23 18:42 Troponin T Hi Sens 6Hr Delta 0.42 ng/L (0-12) 09/15/23 18:42 Total Protein 7.4 g/dL (6.6-8.7) 09/15/23 12:50 Albumin 4.3 g/dL (3.5-5.2) 09/15/23 12:50 Globulin 3.1 g/dL (1.3-4.6) 09/15/23 12:50 Prolactin 3.12 ng/mL (4.0-15.2) L 09/15/23 18:42 Urine Color Yellow (Yellow) 09/15/23 01:25 Urine Appearance Clear (CLEAR) 09/15/23 01:25 Urine pH 5 (5-7) 09/15/23 01:25 Ur Specific [place] 1.015 (1.005-1.030) 09/15/23 01:25 Urine Protein Neg (Negative) 09/15/23 01:25 Urine Glucose (UA) Norm (Normal) 09/15/23 01:25 Urine Ketones 1+ (Negative) H 09/15/23 01:25 Urine Blood 2+ (Negative) H 09/15/23 01:25 Urine Nitrate Negative (Negative) 09/15/23 01:25 Urine Bilirubin Neg (Negative) 09/15/23 01:25 Urine Urobilinogen Norm mg/dL (Negative) 09/15/23 01:25 Ur Leukocyte Esterase 1+ (Negative) H 09/15/23 01:25 Urine RBC 0-4 /hpf (0-2) H 09/15/23 01:25 Urine WBC 5-10 /hpf (0-5) H 09/15/23 01:25 Ur Squamous Epith Cells Rare /hpf (0-5) 09/15/23 01:25 Amorphous Sediment Not Reportable 09/15/23 01:25 Urine Bacteria 1+ /hpf (NONE) H 09/15/23 01:25 Salicylates < 0.3 mg/dL (3-10) L 09/15/23 12:50 Urine Opiates Screen Positive ng/mL (Negative) H 09/15/23 01:25 Acetaminophen < 5.0 ug/mL (10-30) L 09/15/23 12:50 Ur Barbiturates Screen Negative ng/mL (Negative) 09/15/23 01:25 Ur Phencyclidine Scrn Negative ng/mL (Negative) 09/15/23 01:25 Ur Amphetamines Screen Negative ng/mL (Negative) 09/15/23 01:25 U Benzodiazepines Scrn Negative ng/mL (Negative) 09/15/23 01:25 Urine Cocaine Screen Negative ng/mL (Negative) 09/15/23 01:25 U Marijuana (THC) Screen Positive ng/mL (Negative) H 09/15/23 01:25 Ethyl Alcohol < 10 mg/dL (0-10) 09/15/23 12:50 A&P Assessment and plan (1) Altered mental status: Patient with PMH as above brought to ED due to AMS of unknown duration History very limited as unable to reach listed contacts He is currently able to maintain his airway, follows simple commands, however movements are slow. He is disoriented, only speaking 2-3 words. No focal neurological deficits on exam. Ct head without acute intracranial events, changes of chronic small vessel disease U tox negative for opaites, amphetamines, positive for THC blood alcohol level negative UA equivocal with positive leukocyte esterase , negative nitrate, empiric ceftriaxone until urine cx available cxr no consolidation, ct abdomen no acute findings check ammonia , tsh other differentials include polysubstance abuse , suboxone overdose, ?? seizure with post ictal state hold opiates, ssri, gabepentin , trazodone and m]'onitior for improvement currently maintaining airway, momitor closely for deterioration Plan dvt ppx: lovenox Attestations 2 Medical Necessity Statement*: less than 2 midnight stay anticipated at this time Coding Level of Care Code Acute Code for Chg Fwd Moderate MDM includes number and complexity of problems actively addressed during encounter, amount and/or complexity of data reviewed/ordered and described risk of complication, morbidity or mortality of management as documented Diagnoses Altered mental status R41.82
[2023-09-15 19:07] LABS: Troponin 5 6HR 10.42 ng/L (0-15); Troponin 5 6HR Delta 0.42 ng/L (0-12)
[2023-09-15] MEDS: sodium chloride 0.9% 1,000 ML 100 ML IV (19:30)
[2023-09-15] MEDS: enoxaparin 40 mg/0.4 mL Syringe SUBCUT (19:31)
[2023-09-15 20:00] VITALS: BP 144/88; PULSE 112; RESP 18; TEMP 36.8; O2SAT 97
[2023-09-15 20:17] LABS: Prolactin 3.12 ng/mL (4.0-15.2)
[2023-09-15 22:14] VITALS: PULSE 102
[2023-09-16] VITALS (8 sets, daily range): BP systolic 120–155; BP diastolic 75–88; PULSE 58–101; RESP 15–18; TEMP 36.4–37; O2SAT 96–97
[2023-09-16] MEDS: cefTRIAXone 1,000 MG in sodium chloride 0.9% (plus) 50 ML 100 MG IV (04:34)
[2023-09-16 05:08] LABS: Basophils % 0.2 %; Eosinophils % 0.2 %; Hematocrit 38.8 % (37-53); Lymphocytes # 1.5 10^3/uL (0.8-4.8); Lymphocytes % 14.8 %; Mean Corpuscular HGB Conc 33.2 g/dL (30-55); Mean Corpuscular Hemoglobin 32.9 pg (27-33); Mean Platelet Volume 9.5 fL (7.4-10.4); Monocytes # 0.6 10^3/uL (0.2-0.9); Monocytes % 5.6 %; Neutrophils # 8.26 10^3/uL (1.8-7.7); Nucleated Red Blood Cells % 0 %; Platelet Count 210 10^3/cmm (157-399); Red Blood Count 3.92 10^6/uL (3.85-5.65); Red Cell Distribution Width 13.3 % (12.1-15.1); White Blood Count 10.44 10^3/uL (3.29-11.43)
[2023-09-16 05:22] LABS: Ammonia 20 umol/L (16-60)
[2023-09-16] MEDS: sodium chloride 0.9% 1,000 ML 100 ML IV ×2 (05:28→16:37)
[2023-09-16 05:37] LABS: Alanine Aminotransferase 6 U/L (0-41); Albumin Level 3.9 g/dL (3.5-5.2); Alkaline Phosphatase 95 U/L (40-130); Aspartate Amino Transferase 16 U/L (0-40); Blood Urea Nitrogen 13 mg/dL (8-23); Calcium 8.8 mg/dL (8.5-10.5); Carbon Dioxide 23 mmol/L (22-29); Chloride 108 mmol/L (98-107); Creatinine Clr Calc Pharmacy 87.7718; Globulin 3.2 g/dL (1.3-4.6); Glomerular Filtration Rate 84.7 mL/min (90-130); Glucose 102 mg/dL (65-115); Osmolality Calculated 294 mOsm/kg (285-295); Sodium 142 mmol/L (136-145); Total Bilirubin 0.3 mg/dL (0.15-1.2); Total Protein 7.1 g/dL (6.6-8.7)
--- NOTE | 2023-09-16 09:32 | PC.CHAP ---
Pastoral Care Encounter/Spiritual Assessment Type of Contact [] Declined medical record assistant visit [] Patient/Family/Request visit [] Outpatient visit [] Follow-up visit [] Physician referral [] Code/Alert [x] Routine visit [] Staff referral [] Actively dying [] Patient sleeping [] Family support [] [] Out of room [] Palliative care [] [] Receiving care in room [] Pre-surgical visit [] Trauma [] Long length of stay [] ICU visit [] Other: Relational/Emotional Strength [] Patient feels connected with others/family/visitors/staff [] Distress [] Loneliness/isolation [] Abandonment Spirituality of Patient [x] Person of Ashia [] Attends Anabaptist of their Ashia [x] Believes in Prayer [] Reads Bible or Taoism materials [] There are Spiritual issues to be addressed Cabin Worker Interventions [x] Prayer [x] Active listening [] Non-anxious presence [] Spiritual/emotional support [] Crisis/trauma care [] Spiritual counseling [] Bereavement support [] Provided bereavement packet [x] Provided Bible/devotional materials [] Provided toy/stuffed animal, coloring book to patient or family member [] Provided Communion [] Anointing/[place] [] Salvation [x] Completed spiritual assessment [] Other: Impact on Illness or Injury [] Angry [] Fearful [] Anxious [] Often cries [] Exhaustion [] Unable to work [] Unable to attend yarsani [] Unable to walk/stand [] Unable to read [] Unable to drive [] Unable to eat/drink [] Unable to sleep [] Unable to be with family [] Patient intubated [] Other: Summary Time spent with patient 5 min
--- NOTE | 2023-09-16 16:09 | P.PN_ITS ---
Subjective 2 Subjective: No acute overnight events noted Medications: Reviewed: Yes Vitals/I&O/Wt Last Vital Signs Temp 98.3 F 09/16/23 11:28 Pulse 89 09/16/23 11:28 Resp 15 09/16/23 11:28 BP 155/83 09/16/23 11:28 Pulse Ox 96 09/16/23 11:28 O2 Del Method Room Air 09/16/23 11:28 09/16/23 09/16/23 09/16/23 06:59 14:59 22:59 Intake Total 1046.667 / 2046.667 Balance 1046.667 / 6.667 Weight last 48 hrs Weight 80.087 kg Weight 77.111 kg Physical Exam 2 Narrative: He is awake but not oriented. Chest clear to auscultation bilaterally Cardiovascular normal heart sounds Abdomen soft nontender nondistended Extremities no edema noted. Data 09/16/23 04:58 09/16/23 04:58 Micro: Microbiology 09/15/23 12:59 Blood Culture - Preliminary Blood NEGATIVE TO DATE 09/15/23 12:50 Blood Culture - Preliminary Blood NEGATIVE TO DATE 09/15/23 01:25 Urine Culture - Preliminary Urine,Clean Catch A&P Assessment and plan (1) Altered mental status: Plan (1) Altered mental status: He is still disoriented, unable to obtain detailed history due to mental status. Ct head without acute intracranial events, changes of chronic small vessel disease U tox negative for , amphetamines, positive for THC and opiates blood alcohol level negative UA equivocal with positive leukocyte esterase , negative nitrate, empiric ceftriaxone until urine cx available cxr no consolidation, ct abdomen no acute findings check ammonia , tsh hold opiates, ssri, gabepentin , trazodone and monitior for improvement Diet regular diet DVT prophylaxis with Lovenox He is full code for now Attestations 2 Medical Necessity Statement*: Need continued hospitalization for altered mental status and IV antibiotics and fluids Time Spent in Patient Care: 25 minutes Coding Level of Care Code Acute Code for Chg Fwd Diagnoses Altered mental status R41.82 Time Spent (min) 25
[2023-09-16] MEDS: enoxaparin 40 mg/0.4 mL Syringe SUBCUT (18:10)
[2023-09-17] VITALS (9 sets, daily range): BP systolic 156–172; BP diastolic 74–89; PULSE 55–74; RESP 16–17; TEMP 36.4–36.9; O2SAT 95–99
[2023-09-17] MEDS: sodium chloride 0.9% 1,000 ML 100 ML IV ×3 (01:33→23:16)
[2023-09-17] MEDS: cefTRIAXone 1,000 MG in sodium chloride 0.9% (plus) 50 ML 100 MG IV (03:25)
--- NOTE | 2023-09-17 16:04 | P.PN_ITS ---
Subjective 2 Subjective: No acute overnight events noted Medications: Reviewed: Yes Vitals/I&O/Wt Last Vital Signs Temp 98.0 F 09/17/23 11:19 Pulse 64 09/17/23 11:19 Resp 16 09/17/23 11:19 BP 172/87 09/17/23 11:19 Pulse Ox 98 09/17/23 11:19 O2 Del Method Room Air 09/17/23 11:19 O2 Flow Rate 2 09/16/23 15:41 09/17/23 09/17/23 09/17/23 06:59 14:59 22:59 Intake Total 943.333 / 9645.269 1722 / 1000 Balance 943.333 / 4779.155 1869 / 1000 Weight last 48 hrs Weight 79.407 kg Weight 80.087 kg Physical Exam 2 Narrative: He is alert awake oriented x 2 Chest clear to auscultation bilaterally Cardiovascular normal heart sounds no murmurs Abdomen soft nontender nondistended normal bowel sounds Extremities no edema present bilaterally Data 09/16/23 04:58 09/16/23 04:58 Micro: Microbiology 09/15/23 01:25 Urine Culture - Final Urine,Clean Catch 09/15/23 12:59 Blood Culture - Preliminary Blood NEGATIVE TO DATE 09/15/23 12:50 Blood Culture - Preliminary Blood NEGATIVE TO DATE A&P Assessment and plan (1) Altered mental status: Plan He is much more awake and oriented today but not his baseline As per the family he has been having intermittent episodes of disorientation and altered mental status due to lack of sleep. Will continue with current plan, with IV fluids and IV antibiotics ceftriaxone for possible UTI although urine cultures negative to date. Altered mental status more likely due to substance abuse. Regular diet DVT prophylaxis with Lovenox He is full code for now. Attestations 2 Medical Necessity Statement*: He needs continued hospitalization for management of altered mental status which is resolving. Anticipatory plan for discharge in 24 to 48 hours. Time Spent in Patient Care: 15 minutes Coding Level of Care Code Acute Code for Chg Fwd Diagnoses Altered mental status R41.82 Time Spent (min) 15
[2023-09-17] MEDS: atorvastatin 40 mg Tablet PO (18:20)
[2023-09-17] MEDS: enoxaparin 40 mg/0.4 mL Syringe SUBCUT (19:34)
[2023-09-18] VITALS (8 sets, daily range): BP systolic 125–168; BP diastolic 81–85; PULSE 58–112; RESP 15–18; TEMP 36.5–37.3; O2SAT 92–100
[2023-09-18] MEDS: cefTRIAXone 1,000 MG in sodium chloride 0.9% (plus) 50 ML 100 MG IV (04:03)
[2023-09-18] MEDS: tamsulosin 0.4 mg Capsule 0.400000000000000022 MG PO (09:58)
[2023-09-18] MEDS: duloxetine 60 mg Capsule PO (09:58)
[2023-09-18] MEDS: pantoprazole DR 40 mg Tablet PO (09:58)
[2023-09-18] MEDS: finasteride 5 mg Tablet PO (09:58)
[2023-09-18] MEDS: oxybutynin chloride XL 5 MG TABLET 10 MG PO (09:58)
[2023-09-18] MEDS: sodium chloride 0.9% 1,000 ML 100 ML IV ×2 (10:00→19:59)
--- NOTE | 2023-09-18 16:21 | P.PN_ITS ---
Subjective 2 Subjective: No acute overnight events noted Medications: Reviewed: Yes Vitals/I&O/Wt Last Vital Signs Temp 97.8 F 09/18/23 11:38 Pulse 81 09/18/23 11:38 Resp 16 09/18/23 11:38 BP 156/84 09/18/23 11:38 Pulse Ox 94 09/18/23 11:38 O2 Del Method Room Air 09/18/23 11:38 O2 Flow Rate 2 09/16/23 15:41 09/18/23 09/18/23 09/18/23 06:59 14:59 22:59 Intake Total 290 / 2410 1240 / 1240 Balance 290 / 2410 1240 / 1240 Weight last 48 hrs Weight 79.469 kg Weight 79.407 kg Physical Exam 2 Narrative: He is alert awake,alert and oriented to person only. Chest clear to auscultation bilaterally Cardiovascular normal heart sounds no murmurs Abdomen soft nontender nondistended normal bowel sounds Extremities no edema present bilaterally Data 09/16/23 04:58 09/16/23 04:58 A&P Assessment and plan (1) Altered mental status: Plan He is much more awake and oriented today but not his baseline As per the family, his , he has been having intermittent episodes of disorientation and altered mental status due to lack of sleep. Will continue with current plan, with IV fluids and IV antibiotics ceftriaxone for possible UTI although urine cultures negative to date. Altered mental status of unknown etiology, infectious cause/stroke ruled out on initial evaluation. Patient was unable to walk/balance today, and also spoke with the over the phone she thinks he is still not at his baseline . Will check MRI brain without contrast for further evaluation of stroke. Regular diet DVT prophylaxis with Lovenox He is full code for now. Attestations 2 Medical Necessity Statement*: He needs continued hospitalization for management of altered mental status which is resolving. Need PT eval and treat for physical debilitation. Anticipatory plan for discharge in 24 to 48 hours. Time Spent in Patient Care: 15 minutes Coding Level of Care Code Acute Code for Chg Fwd Diagnoses Altered mental status R41.82 Time Spent (min) 15
[2023-09-19] VITALS (8 sets, daily range): BP systolic 98–160; BP diastolic 60–89; PULSE 62–114; RESP 14–18; TEMP 36.5–37.2; O2SAT 95–98
[2023-09-19] MEDS: cefTRIAXone 1,000 MG in sodium chloride 0.9% (plus) 50 ML 100 MG IV (05:05)
[2023-09-19] MEDS: sodium chloride 0.9% 1,000 ML 100 ML IV (05:05)
[2023-09-19] MEDS: duloxetine 60 mg Capsule PO (09:53)
[2023-09-19] MEDS: pantoprazole DR 40 mg Tablet PO (09:53)
[2023-09-19] MEDS: tamsulosin 0.4 mg Capsule 0.400000000000000022 MG PO (09:53)
[2023-09-19] MEDS: finasteride 5 mg Tablet PO (09:53)
--- NOTE | 2023-09-19 11:25 | PM.DCS ---
Discharge Providers Date of Admission: 09/15/23 14:53 Date of Discharge: September 19, 2023 Attending Provider at Admission: Juliette Klein MD Attending Provider at Discharge: Carolin Fisher MD Primary Care Provider: Heaven Chong NP Diagnoses at Discharge Discharge Diagnosis (1) Altered mental status: Status: Acute Reason for Visit Reason for Visit: AMS Brief History: 63 year old male with PMH HTN, insomnia BPH overactive bladder neuropathy reflux chronic back pain degenerative disc disease hyperlipidemia history of hepatitis C history of left nephrectomy , per discussion with ERP, also currently on suboxone for chronic pain. History was obtained by chart reveiw and discussion with ERP as patient unable to participate. Phone no. for his listed contact is not reachable. He was brought to the ER today due to poor responsiveness. HIs pupils were dilated at time of exam. CT head negative. There was no significant response to narcan in the ED. At the time of this exam, patient was able to be easily awakened. He is moving all extremities, follows commands to move extremities , move from gurney to bed etc, opens eyes to calling his name, nods yes or no to simple questions like are you aleksandr? , however does not say more then 2-3 words or participate in conversation. no known h/o seizures per chart review . He was found to have suboxone pills in his pocket in the er. Denies any pain when asked, however winces to superficial touch everywhere including abdomen, chest, legs, arms, etc Hospital Course Hospital Course He was treated for altered mental status of unknown duration and unknown etiology. CT head was negative for any acute intracranial pathology. U tox was positive for his home medication opiates and THC. he was started on IV fluids and IV ceftriaxone for possible UTI. He was clinically improving, he became more alert and oriented but then started retaining urine, hence Johnson catheter placed. He was also unable to walk during PT and with this urinary retention, he got a MRI head without contrast done this morning which showedconsistent with findings suspicious for posterior reversible encephalopathy syndrome left parietal focus demonstrated a small amount of increased signal on diffusion and may progress to ischemic changes minimal small vessel changes with moderate parenchymal volume loss worse in the frontal lobes. Neurology consulted and recommended to start on aspirin 325 mg daily and atorvastatin 80 mg daily. He is supposed to follow-up in the neurology clinic on Saturday at 7:30 AM. He is hemodynamically stable, maintaining his airway, and clinically improving in terms of mental status. Urinary retention resolved and there is no new neurological deficits. He is doing well and ready to be discharged home. Physical Exam Narrative: He is alert awake oriented x 2 Chest clear to auscultation bilaterally Cardiovascular normal heart sounds no murmurs Abdomen NAD Extremities no edema noted bilateral lower extremities Neurologically no motor or sensory deficits noted Urinary Catheter Management: Johnson: Cath Placed During This Visit: yes Reason for Continuing Indwelling Catheter: Acute Urinary Retention or Obstruction Urinary Catheter Date of Insertion: 09/19/23 Urinary Catheter Time of Insertion: 01:19 Discharge Data Studies Completed and Pending Completed Studies During Hospitalization Category Date Time Status CT abdomen pelvis wo con [id number] Stat Cat Scan 09/15/23 14:[address] head wo con* [id number] Stat Cat Scan 09/15/23 12:43 Completed XR chest 1V portable [id number] Stat Exams 09/15/23 12:42 Completed Pending at discharge Category Date Time Status Blood Culture Stat Lab 09/15/23 12:59 Results MR head wo con* [id number] Routine MRI 09/19/23 11:30 Taken Radiology Impressions Chest X-Ray 09/15/23 12:42 IMPRESSION: No acute findings. Head CT 09/15/23 12:43 IMPRESSION: No acute intracranial hemorrhage or mass effect identified. Age consistent findings of sequelae of chronic small-vessel disease. Abdomen/Pelvis CT 09/15/23 14:59 IMPRESSION: 1. Diverticulosis without secondary evidence of acute diverticulitis. 2. Status post left nephrectomy. 3. No hydronephrosis of the right kidney or ureteral calculus demonstrated. Moderately distended urinary bladder. 4. Fatty replacement of the pancreas particularly the pancreatic head. COMMENTS: Please note that lack of IV contrast limits both the sensitivity, and the specificity, of the examination, particularly as regards focal lesions in the solid organs. Laboratory Results WBC 10.44 10^3/uL (3.29-11.43) 09/16/23 04:58 RBC 3.92 10^6/uL (3.85-5.65) 09/16/23 04:58 Hgb 12.90 g/dL (11.27-16.99) 09/16/23 04:58 Hct 38.8 % (37-53) 09/16/23 04:58 MCV 99.0 fl (82-101) 09/16/23 04:58 MCH 32.9 pg (27-33) 09/16/23 04:58 MCHC 33.2 g/dL (30-55) 09/16/23 04:58 RDW 13.3 % (12.1-15.1) 09/16/23 04:58 Plt Count 210 10^3/cmm (157-399) 09/16/23 04:58 MPV 9.5 fL (7.4-10.4) 09/16/23 04:58 Neut % (Auto) 79.0 % 09/16/23 04:58 Lymph % (Auto) 14.8 % 09/16/23 04:58 Alexander % (Auto) 5.6 % 09/16/23 04:58 Eos % (Auto) 0.2 % 09/16/23 04:58 Baso % (Auto) 0.2 % 09/16/23 04:58 Neut # (Auto) 8.26 10^3/uL (1.8-7.7) H 09/16/23 04:58 Lymph # (Auto) 1.5 10^3/uL (0.8-4.8) 09/16/23 04:58 Alexander # (Auto) 0.6 10^3/uL (0.2-0.9) 09/16/23 04:58 Eos # (Auto) 0.0 10^3/uL (0.0-0.8) 09/16/23 04:58 Baso # (Auto) 0.0 10^3/uL (0.0-0.1) 09/16/23 04:58 Nucleated RBC % (auto) 0 % 09/16/23 04:58 Nucleated RBCs # 0.0 /100WBC 09/16/23 04:58 Sodium 142 mmol/L (136-145) 09/16/23 04:58 Potassium 4.0 mmol/L (3.5-5.1) 09/16/23 04:58 Chloride 108 mmol/L (98-107) H 09/16/23 04:58 Carbon Dioxide 23 mmol/L (22-29) 09/16/23 04:58 Anion Gap 15.0 (5-19) 09/16/23 04:58 BUN 13 mg/dL (8-23) 09/16/23 04:58 Creatinine 0.9 mg/dL (0.7-1.2) 09/16/23 04:58 GFR Calculation 84.7 mL/min (90-130) L 09/16/23 04:58 Glucose 102 mg/dL (65-115) 09/16/23 04:58 Calculated Osmolality 294 mOsm/kg (285-295) 09/16/23 04:58 Calcium 8.8 mg/dL (8.5-10.5) 09/16/23 04:58 Total Bilirubin 0.3 mg/dL (0.15-1.2) 09/16/23 04:58 AST 16 U/L (0-40) 09/16/23 04:58 ALT 6 U/L (0-41) 09/16/23 04:58 Alkaline Phosphatase 95 U/L (40-130) 09/16/23 04:58 Ammonia 20 umol/L (16-60) 09/16/23 04:58 Troponin T Baseline 10 ng/L (0-15) 09/15/23 12:50 Troponin T 120 Minute 9.61 ng/L (0-15) 09/15/23 15:00 Delta Troponin T -0.39 ABS# (0-10) L 09/15/23 15:00 Troponin T Hi Sens 6Hr 10.42 ng/L (0-15) 09/15/23 18:42 Troponin T Hi Sens 6Hr Delta 0.42 ng/L (0-12) 09/15/23 18:42 Total Protein 7.1 g/dL (6.6-8.7) 09/16/23 04:58 Albumin 3.9 g/dL (3.5-5.2) 09/16/23 04:58 Globulin 3.2 g/dL (1.3-4.6) 09/16/23 04:58 TSH 0.90 uIU/mL (0.27-4.20) 09/16/23 04:58 Prolactin 3.12 ng/mL (4.0-15.2) L 09/15/23 18:42 Urine Color Yellow (Yellow) 09/15/23 01:25 Urine Appearance Clear (CLEAR) 09/15/23 01:25 Urine pH 5 (5-7) 09/15/23 01:25 Ur Specific Holden 1.015 (1.005-1.030) 09/15/23 01:25 Urine Protein Neg (Negative) 09/15/23 01:25 Urine Glucose (UA) Norm (Normal) 09/15/23 01:25 Urine Ketones 1+ (Negative) H 09/15/23 01:25 Urine Blood 2+ (Negative) H 09/15/23 01:25 Urine Nitrate Negative (Negative) 09/15/23 01:25 Urine Bilirubin Neg (Negative) 09/15/23 01:25 Urine Urobilinogen Norm mg/dL (Negative) 09/15/23 01:25 Ur Leukocyte Esterase 1+ (Negative) H 09/15/23 01:25 Urine RBC 0-4 /hpf (0-2) H 09/15/23 01:25 Urine WBC 5-10 /hpf (0-5) H 09/15/23 01:25 Ur Squamous Epith Cells Rare /hpf (0-5) 09/15/23 01:25 Amorphous Sediment Not Reportable 09/15/23 01:25 Urine Bacteria 1+ /hpf (NONE) H 09/15/23 01:25 Salicylates < 0.3 mg/dL (3-10) L 09/15/23 12:50 Urine Opiates Screen Positive ng/mL (Negative) H 09/15/23 01:25 Acetaminophen < 5.0 ug/mL (10-30) L 09/15/23 12:50 Ur Barbiturates Screen Negative ng/mL (Negative) 09/15/23 01:25 Ur Phencyclidine Scrn Negative ng/mL (Negative) 09/15/23 01:25 Ur Amphetamines Screen Negative ng/mL (Negative) 09/15/23 01:25 U Benzodiazepines Scrn Negative ng/mL (Negative) 09/15/23 01:25 Urine Cocaine Screen Negative ng/mL (Negative) 09/15/23 01:25 U Marijuana (THC) Screen Positive ng/mL (Negative) H 09/15/23 01:25 Ethyl Alcohol < 10 mg/dL (0-10) 09/15/23 12:50 Vitals Last Vital Signs Temp 98.3 F 09/19/23 11:20 Pulse 88 09/19/23 11:20 Resp 15 09/19/23 11:20 BP 125/79 09/19/23 11:20 Pulse Ox 95 09/19/23 11:20 O2 Del Method Room Air 09/19/23 11:20 O2 Flow Rate 2 09/16/23 15:41 Discharge Plan Discharge Patient Disposition: Home Condition: Stable Prescriptions: New aspirin 325 mg capsule 325 mg PO DAILY Qty: 14 0RF Lipitor 80 mg tablet 80 mg PO QPM Qty: 14 0RF Continued duloxetine 60 mg capsule,delayed release(DR/EC) 60 mg PO DAILY 90 Days Qty: 90 1RF pantoprazole [Protonix] 40 mg tablet,delayed release (DR/EC) 40 mg PO DAILY 90 Days Qty: 90 1RF tamsulosin [Flomax] 0.4 mg capsule 0.4 mg PO DAILY 90 Days Qty: 90 1RF finasteride 5 mg tablet 5 mg PO DAILY celecoxib 200 mg capsule 200 mg PO BID trazodone 150 mg tablet 150 mg PO BEDTIME cholecalciferol (vitamin D3) 25 mcg (1,000 unit) capsule 75 mcg PO DAILY Discontinued cyclobenzaprine 10 mg tablet 10 mg PO TID 90 Days Qty: 270 1RF gabapentin 600 mg tablet 600 mg PO TID 90 Days Qty: 270 1RF acetaminophen-codeine 300-60 mg tablet 1 tab PO TID PRN (Reason: pain) 30 Days Qty: 90 0RF oxybutynin chloride 10 mg tablet extended release 24hr 10 mg PO DAILY buprenorphine-naloxone [Suboxone] 8-2 mg film 0.5 film sublingual BID atorvastatin 40 mg tablet 40 mg PO QPM Discharge Orders: Discharge Order (Routine); Ordered 09/20/23 Ordered By: Carolin Fisher Other Ambulatory Orders: DME: Jose Alfredo (Order) Location: None Selected Ordered By: Carolin Fisher Referrals: Heaven Chong NP [Primary Care Provider] - Silvano Hebert MD [Physician] - 09/23/23 7:30 am Discharge Diet: Cardiac Discharge Activity: Increase activity as tolerated Patient Instructions: Altered Mental Status (ED), Encephalopathy (DC), Opioid Safety Discharge Attestations Time Spent in Discharge Care*: less than 30 min Quality Metrics Clinical Quality Measures [ No reported AMI, CVA or VTE this stay] Coding Level of Care Code Acute Code for Chg Fwd Diagnoses Altered mental status R41.82 Time Spent (min) 25
--- NOTE | 2023-09-19 11:30 | MR_ITS ---
WS: [id number] MRI HEAD WITHOUT CONTRAST TECHNIQUE: Sagittal T1, T2 axial, T2 axial FLAIR, axial and coronal T1 images, axial susceptibility w eighted imaging, axial diffusion weighted images, and coronal T2 images were obtained. CLINICAL INFORMATION: AMS COMPARISON: None. FINDINGS: Subcortical foci of T2 hyperintensity involving the bilateral occipital lobes in a symmetrical distri bution. Additional similar-appearing subcortical edema involving the LEFT greater than RIGHT parietal lobes and peripheral RIGHT cerebellum. Findings are suspicious for posterior reversible encephalopat hy syndrome. Correlation with hypertension. The LEFT parietal area of edema demonstrate some increased diffusion s ignal and may progress to ischemia. Otherwise minimal small vessel changes. Moderate parenchymal volume loss worse in the frontal lobes. Normal vascular flow voids at the skull base. Paranasal sinuses are well aerated. Mucosal thickening in the LEFT greater than RIGHT mastoid tip. No hemosiderin on the susceptibility weighted images. Normal optic chiasm and pituitary infundibulum. Mild to moderate symmetric atrophy temporal lobes hippocampal formations. MR/MR head wo con* [id number] IMPRESSION: 1. Findings as discussed above suspicious for posterior reversible encephalopa thy syndrome. Recommend correlation with hypertension. 2. Described LEFT parietal focus demonstrates a small amount of increased sign al on diffusion and may progress to ischemia. 3. Otherwise minimal small vessel changes with moderate parenchymal volume los s worse in the frontal lobes. 4. No hemosiderin on the susceptibly weighted images. Message LEFT with answering service for Carolin Fisher MD at 09/19/2023 11:20 A M.
[2023-09-19] MEDS: aspirin 325 mg Tablet PO (15:06)
--- NOTE | 2023-09-19 17:19 | P.PN_ITS ---
Subjective 2 Subjective: No acute overnight events noted Medications: Reviewed: Yes Vitals/I&O/Wt Last Vital Signs Temp 98.3 F 09/19/23 11:20 Pulse 88 09/19/23 11:20 Resp 15 09/19/23 11:20 BP 125/79 09/19/23 11:20 Pulse Ox 95 09/19/23 11:20 O2 Del Method Room Air 09/19/23 11:20 O2 Flow Rate 2 09/16/23 15:41 09/19/23 09/19/23 09/19/23 06:59 14:59 22:59 Intake Total 960 / 3438.333 240 / 240 993.333 / 1233.333 Output Total 650 / 650 Balance 310 / 2788.333 240 / 240 993.333 / 1233.333 Weight last 48 hrs Weight 80.649 kg Weight 79.469 kg Physical Exam 2 Narrative: He is alert awake oriented x 2 Chest clear to auscultation bilaterally Cardiovascular normal heart sounds no murmurs Abdomen NAD Extremities no edema noted bilateral lower extremities Neurologically no motor or sensory deficits noted Urinary Catheter Management: Johnson: Cath Placed During This Visit: yes Reason for Continuing Indwelling Catheter: Acute Urinary Retention or Obstruction Urinary Catheter Date of Insertion: 09/19/23 Urinary Catheter Time of Insertion: 01:19 Data 09/16/23 04:58 09/16/23 04:58 A&P Assessment and plan (1) Altered mental status: Plan He is much more awake and oriented today but not his baseline As per the family, his , he has been having intermittent episodes of disorientation and altered mental status due to lack of sleep. Will continue with current plan, with IV fluids and IV antibiotics ceftriaxone for possible UTI although urine cultures negative to date. Altered mental status of unknown etiology, infectious cause/stroke ruled out on initial evaluation. MRI brain without contrast done today showed posterior reversible encephalopathy. Neurology consulted and recommended to start him on aspirin 325 mg daily, atorvastatin 80 mg daily and follow-up in neurology clinic on Saturday. As per neurology posterior reversible and encephalopathy will resolve with time and there is no further intervention needed at this time. He was given trial of void since this morning , did bladder scan which showed 174 mL and the patient was able to urinate 150 ml. his urinary retention resolved, he is hemodynamically stable and improved in terms of his mental condition. Regular diet DVT prophylaxis with Lovenox He is full code for now. Attestations 2 Medical Necessity Statement*: He is hemodynamically stable and improved mental status, will discharge home in a.m. Time Spent in Patient Care: 15 minutes Coding Level of Care Code Acute Code for Chg Fwd Diagnoses Altered mental status R41.82 Time Spent (min) 15
[2023-09-19] MEDS: atorvastatin 40 mg Tablet 80 MG PO (17:23)
[2023-09-20 04:00] VITALS: BP 147/89; PULSE 87; RESP 18; TEMP 36.6; O2SAT 94
[2023-09-20 07:55] VITALS: BP 140/90; PULSE 96; RESP 15; TEMP 36.7; O2SAT 97
[2023-09-20] MEDS: acetaminophen 325 mg Tablet 650 MG PO (08:47)
[2023-09-20] MEDS: duloxetine 60 mg Capsule PO (08:48)
[2023-09-20] MEDS: tamsulosin 0.4 mg Capsule 0.400000000000000022 MG PO (08:48)
[2023-09-20] MEDS: aspirin 325 mg Tablet PO (08:48)
[2023-09-20] MEDS: finasteride 5 mg Tablet PO (08:48)
[2023-09-20] MEDS: pantoprazole DR 40 mg Tablet PO (08:49)
--- NOTE | 2023-09-20 11:59 | PC.NURSE ---
pts spouse stated, he isnt going to stop those medications! referring to the meds that the hospitalist stopped on d/c
--- NOTE | 2023-09-20 12:17 | PC.NURSE ---
pt and spouse stated that she took all his personal items home previously.
[2023-09-20 12:20] VITALS: BP 140/90; PULSE 96; RESP 15; TEMP 36.7; O2SAT 97
== END 2023-09-20 11:55 | disposition home or self-care (01) ==
LOC: ER 13:00 → MEDSURG 16:20
PROVIDERS: Admitting Provider Student in an Organized Health Care Education/Training Program; Emergency Provider Family Medicine; PCP Nurse Practitioner Family; Visit Provider Internal Medicine
DX: R41.82 Altered mental status, unspecified (principal); I10 Essential (primary) hypertension; N40.0 Benign prostatic hyperplasia without lower urinary tract symptoms; M19.90 Unspecified osteoarthritis, unspecified site; E78.5 Hyperlipidemia, unspecified; Z86.19 Personal history of other infectious and parasitic diseases; Z90.5 Acquired absence of kidney; G47.00 Insomnia, unspecified; G89.29 Other chronic pain; Z79.891 Long term (current) use of opiate analgesic; F17.200 Nicotine dependence, unspecified, uncomplicated
CPT/HCPCS: 36415; 51702; 51798; 70450; 70551; 71045; 74176; 80053; 80306; 80307; 81001; 82140; 84146; 84443; 84484; 85025; 87040; 87086; 93005; 96361; 96365; 96372; 96375; 97116; 97161; 97530; 99285; G0378; J0696; J1650; J2310; J2405; J7030

== ENCOUNTER → 2023-11-19 09:45 | Outpatient (BNVA) | payer MEDICARE, MEDICAID, SELFPAY | PROVIDERS: PCP Nurse Practitioner Family; Referring Provider Nurse Practitioner Family; Visit Provider Psychiatry & Neurology Neurology | DX: G93.40 Encephalopathy, unspecified (principal); G62.9 Polyneuropathy, unspecified; M54.10 Radiculopathy, site unspecified; M54.2 Cervicalgia; J32.9 Chronic sinusitis, unspecified; E55.9 Vitamin D deficiency, unspecified; R55 Syncope and collapse; R93.7 Abnormal findings on diagnostic imaging of other parts of musculoskeletal system | CPT/HCPCS: 36415; 82306; 83735; 86160; 86162; 86235; 86255; 86376; 86592; 99203 ==

== ENCOUNTER 2023-12-04 07:51 | Outpatient (CLI) | payer MEDICARE, MEDICAID, SELFPAY ==
--- NOTE | 2023-12-04 08:00 | MR_ITS ---
WS: [id number] MRI HEAD WITH CONTRAST TECHNIQUE: Sagittal T1, T2 axial, T2 axial FLAIR, axial susceptibility weighted imaging, axial diffus ion weighted images, and coronal T2 images were obtained. Pre and post-T1 axial and post T1 coronal i mages. ADC and FSPGR images. CLINICAL INFORMATION: R93.7 - Abnormal findings on diagnostic imaging of other ... COMPARISON: 09/19/2023 FINDINGS: Previously described subcortical foci of T2 hyperintensity involving the bilateral occipital lobes in a symmetrical distribution has resolved. Additional similar-appearing lesions involving the parietal lobes and RIGHT cerebellum have resolved compared to previous. Minimal small vessel changes. Moderate parenchymal volume loss. Normal vascular flow voids at the sku ll base. No hemosiderin on the susceptibility weighted images. Normal posterior nasopharynx. Paranasa l sinuses and mastoid air cells are well aerated. Normal optic chiasm and pituitary infundibulum. Mod erate symmetric atrophy temporal lobes and hippocampal formations. No abnormal gadolinium enhancement . Normal dural venous sinuses. No abnormal foci of enhancement. MR/MR head wo/w con [id number] IMPRESSION: 1. Previously described foci of subcortical T2 hyperintensity have completely resolved compared to the previous study likely due to posterior reversible ence phalopathy syndrome. 2. No restricted diffusion to suggest acute ischemia. 3. Minimal small vessel changes with moderate parenchymal volume loss. 4. No hemosiderin on the susceptibility weighted images.
[2023-12-04] MEDS: gadobenate dimeglumine 5 mL vial IV (08:29)
--- NOTE | 2023-12-04 08:45 | MR_ITS ---
WS: [id number] MRA HEAD TECHNIQUE: Axial 3-D TOF images obtained with axial images and axial, sagittal, and coronal 2-D refor matted images. CLINICAL INFORMATION: R93.7 - Abnormal findings on diagnostic imaging of other ... COMPARISON: None. FINDINGS: Distal vertebral arteries are patent. Slight fusiform dilatation of the distal RIGHT intracranial toribio tebral artery. Basilar artery is patent. Normal vascularity to the TUTOR [employer]ORDIN[employer] territory bilaterally. Both ICAs are patent at the skull base. Tortuous cavernous carotid arteries. Absent RIGHT A1 segment. Azygos VOLODYMYR. Normal vascularity to the VOLODYMYR territory. Normal vascularity to the MCA territories bilat erally. No evidence of proximal flow-limiting stenosis. MR/MR angio head wo con [id number] IMPRESSION: 1. No evidence of high-grade proximal flow-limiting stenosis. 2. Absent RIGHT A1 segment. 3. Slight fusiform dilatation of the distal intracranial RIGHT vertebral arter y which remains patent. 4. No other suspicious findings.
== END 2023-12-04 07:52 | disposition home or self-care (01) ==
LOC: RAD 07:52
PROVIDERS: PCP Nurse Practitioner Family; Visit Provider Psychiatry & Neurology Neurology
DX: R93.7 Abnormal findings on diagnostic imaging of other parts of musculoskeletal system (principal); G62.9 Polyneuropathy, unspecified
CPT/HCPCS: 70544; 70553; A9577